=== PATIENT | male | born 1975 | race Two or more races ===

== ENCOUNTER 2018-09-10 08:41 | Outpatient (CLI) | payer OTHER | END 2018-09-10 09:11 | disposition home or self-care (01) | LOC: RAD 501 08:41 | DX: S61.211S Laceration without foreign body of left index finger without damage to nail, sequela (principal) ==

== ENCOUNTER 2019-07-26 11:10 | Emergency (ER) | payer OTHER ==
[~2019-07-26] VITALS: Ht 172.7 cm; Wt 76.2 kg
== END 2019-07-26 12:34 | disposition home or self-care (01) ==
LOC: ER 11:10
DX: R07.89 Other chest pain (principal); M79.602 Pain in left arm